=== PATIENT | male | born 1970 | race Caucasian/White ===

== ENCOUNTER 2022-02-25 17:51 | Outpatient (REF) | payer OTHER, MEDICAID, SELFPAY ==
[2022-02-25 16:32] LABS: Abs Immature Grans 0.04 10^3/uL (0.0-0.06); Absolute Basophil Count 0.06 10^3/uL (0.0-0.2); Absolute Eosinophil Count 0.19 10^3/uL (0.0-0.7); Absolute Lymphocyte Count 1.83 10^3/uL (1.2-3.4); Absolute Monocyte Count 0.47 10^3/uL (0.1-0.8); Absolute Neutrophil Count 3.91 10^3/uL (1.2-6.7); Basophils % 0.9; Eosinophils % 2.9; HGB 16.4 g/dL (13.5-17.5); Immature Grans % 0.6; Lymphocytes % 28.2; MCH 29.7 pg (27.0-33.0); MCHC 34.2 % (32.0-36.0); MCV 87 fL (80-95); Monocytes % 7.2; Neutrophils % 60.2; Platelet Count 238 10^3/uL (130-400); RBC 5.53 10^6/uL (4.36-5.78); RDW 12.1 % (11.8-14.1); RDW-SD 38.8 fL
[2022-02-25 16:36] LABS: ESR 11 mm/hr (0-15)
[2022-02-25 16:45] LABS: Hemoglobin A1C 11.4 % (<5.7)
[2022-02-25 16:54] LABS: ALT 47 U/L (16-63); AST 25 U/L (15-37); Albumin 3.8 g/dL (3.4-5.0); Alkaline Phosphatase 128 U/L (46-116); Anion Gap 8.6 mmol/L (3-11); BUN 16 mg/dL (7-18); Bilirubin, Total 0.5 mg/dL (0.2-1.0); C-Reactive Protein 0.39 mg/dL (0.0-0.3); CO2 27.4 mmol/L (21.0-32.0); CREATININE 0.9 mg/dL (0.70-1.30); Calcium 9.4 mg/dL (8.5-10.1); Chloride 100 mmol/L (98-107); Glucose 337 mg/dL (74-106); Potassium 4.5 mmol/L (3.5-5.1); Sodium 136 mmol/L (136-145); TSH (W/Ref FT4) 1.21 uIU/mL (0.36-3.74); Total Protein 7.6 g/dL (6.4-8.2)
[2022-02-25 17:45] LABS: Calculated LDL 139 mg/dL (<100); Cholesterol 231 mg/dL (<200); HDL Cholesterol 43 mg/dL (40-60); Triglyceride 245 mg/dL (<150); Vitamin B12 447 pg/mL (193-986)
[2022-02-28 11:34] LABS: Hepatitis C Ab w Rflx HCV PCR Negative (Negative)
[2022-02-28 11:47] LABS: HIV-1/2 Ag & Ab Screen Negative (Negative)
[2022-02-28 13:25] LABS: PSA, Screening 0.3 ng/mL (<=3.5)
== END 2022-02-25 17:52 | disposition home or self-care (01) ==
LOC: NCHCN 17:51
PROVIDERS: PCP Family Medicine; Visit Provider Family Medicine
DX: Z00.00 Encounter for general adult medical examination without abnormal findings (principal); R63.4 Abnormal weight loss; E11.65 Type 2 diabetes mellitus with hyperglycemia; Z13.220 Encounter for screening for lipoid disorders; Z11.4 Encounter for screening for human immunodeficiency virus [HIV]; Z13.21 Encounter for screening for nutritional disorder; Z12.5 Encounter for screening for malignant neoplasm of prostate; Z11.59 Encounter for screening for other viral diseases
CPT/HCPCS: 80053; 80061; 84153; 85652; 86803; 87389; 82607; 83036; 84443; 85025; 86140

== ENCOUNTER 2022-03-01 12:37 | Outpatient (REF) | payer OTHER, MEDICAID, SELFPAY ==
[2022-03-01 15:49] LABS: COMMENT (LAB VIEW ONLY) 69.83 mg/dL; Microalb ug/mg Crea 9.6 ug/mg Cr
== END 2022-03-01 12:38 | disposition home or self-care (01) ==
LOC: NCHCN 12:37
PROVIDERS: PCP Family Medicine; Visit Provider Family Medicine
DX: E11.65 Type 2 diabetes mellitus with hyperglycemia (principal)
CPT/HCPCS: 82043; 82570

== ENCOUNTER 2022-05-31 22:35 | Outpatient (REF) | payer OTHER, MEDICAID, SELFPAY ==
[2022-05-31 21:38] LABS: ALT 43 U/L (16-63); AST 24 U/L (15-37); Alkaline Phosphatase 98 U/L (46-116); Anion Gap 7.2 mmol/L (3-11); BUN 22 mg/dL (7-18); Bilirubin, Total 0.5 mg/dL (0.2-1.0); CO2 27.8 mmol/L (21.0-32.0); CREATININE 0.9 mg/dL (0.70-1.30); Calcium 9.6 mg/dL (8.5-10.1); Calculated LDL 63 mg/dL (<100); Chloride 106 mmol/L (98-107); Cholesterol 134 mg/dL (<200); Glucose 155 mg/dL (74-106); HDL Cholesterol 54 mg/dL (40-60); Potassium 4.4 mmol/L (3.5-5.1); Sodium 141 mmol/L (136-145); Total Protein 7.6 g/dL (6.4-8.2); Triglyceride 89 mg/dL (<150)
== END 2022-05-31 22:36 | disposition home or self-care (01) ==
LOC: NCHCN 22:35
PROVIDERS: PCP Family Medicine; Visit Provider Nurse Practitioner Family
DX: E78.5 Hyperlipidemia, unspecified (principal); E11.65 Type 2 diabetes mellitus with hyperglycemia
CPT/HCPCS: 80053; 80061

== ENCOUNTER 2022-12-07 18:31 | Outpatient (REF) | payer BC, MEDICAID, SELFPAY ==
[2022-12-07 22:16] LABS: COMMENT (LAB VIEW ONLY) 88.49 mg/dL; Microalb ug/mg Crea 6.8 ug/mg Cr
== END 2022-12-07 18:32 | disposition home or self-care (01) ==
LOC: NCHCN 18:31
PROVIDERS: PCP Family Medicine; Visit Provider Nurse Practitioner Family
DX: E11.65 Type 2 diabetes mellitus with hyperglycemia (principal)
CPT/HCPCS: 82043; 82570

== ENCOUNTER 2023-05-31 16:48 | Outpatient (REF) | payer BC, SELFPAY ==
[2023-05-31 21:23] LABS: Hemoglobin A1C 6.8 % (<5.7)
[2023-05-31 21:30] LABS: ALT 40 U/L (16-63); AST 25 U/L (15-37); Alkaline Phosphatase 96 U/L (46-116); Anion Gap 6.4 mmol/L (3-11); BUN 16 mg/dL (7-18); Bilirubin, Total 0.5 mg/dL (0.2-1.0); CO2 27.6 mmol/L (21.0-32.0); CREATININE 0.9 mg/dL (0.70-1.30); Calcium 9.6 mg/dL (8.5-10.1); Calculated LDL 57 mg/dL (<100); Chloride 105 mmol/L (98-107); Cholesterol 146 mg/dL (<200); Estimated GFR 102.76 (mL/min/1.73m2); Glucose 127 mg/dL (74-106); HDL Cholesterol 68 mg/dL (40-60); Potassium 4.6 mmol/L (3.5-5.1); Sodium 139 mmol/L (136-145); Total Protein 7.3 g/dL (6.4-8.2); Triglyceride 105 mg/dL (<150)
== END 2023-05-31 16:49 | disposition home or self-care (01) ==
LOC: NCHCN 16:48
PROVIDERS: PCP Family Medicine; Visit Provider Nurse Practitioner Family
DX: E11.65 Type 2 diabetes mellitus with hyperglycemia (principal); E78.5 Hyperlipidemia, unspecified; Z00.00 Encounter for general adult medical examination without abnormal findings
CPT/HCPCS: 80053; 80061; 83036

== ENCOUNTER 2023-12-06 18:18 | Outpatient (REF) | payer BC, SELFPAY ==
[2023-12-07 19:51] LABS: COMMENT (LAB VIEW ONLY) 76.03 mg/dL; Microalb ug/mg Crea 6.4 ug/mg Cr
== END 2023-12-06 18:19 | disposition home or self-care (01) ==
LOC: NCHCN 18:18
PROVIDERS: PCP Family Medicine; Visit Provider Nurse Practitioner Family
DX: E11.65 Type 2 diabetes mellitus with hyperglycemia (principal)
CPT/HCPCS: 82043; 82570

== ENCOUNTER 2024-11-18 16:44 | Outpatient (REF) | payer BC, SELFPAY ==
[2024-11-18 21:55] LABS: COMMENT (LAB VIEW ONLY) 97.89 mg/dL; Microalb ug/mg Crea 8.7 ug/mg Cr
== END 2024-11-18 16:45 | disposition home or self-care (01) ==
LOC: NCHCN 16:44
PROVIDERS: PCP Family Medicine; Visit Provider Nurse Practitioner Family
DX: E11.65 Type 2 diabetes mellitus with hyperglycemia (principal)
CPT/HCPCS: 82043; 82570

== ENCOUNTER 2025-02-19 20:00 | Outpatient (REF) | payer BC, SELFPAY ==
[2025-02-19 22:24] LABS: ALT 44 U/L (16-63); AST 25 U/L (15-37); Albumin 3.9 g/dL (3.4-5.0); Alkaline Phosphatase 107 U/L (46-116); Anion Gap 8.0 mmol/L (3-11); BUN 19 mg/dL (7-18); Bilirubin, Total 0.4 mg/dL (0.2-1.0); CO2 27.0 mmol/L (21.0-32.0); Calcium 9.4 mg/dL (8.5-10.1); Calculated LDL 57 mg/dL (<100); Chloride 104 mmol/L (98-107); Cholesterol 131 mg/dL (<200); Estimated GFR 110.18 (mL/min/1.73m2); Glucose 88 mg/dL (74-106); HDL Cholesterol 53 mg/dL (>or=40); Potassium 3.9 mmol/L (3.5-5.1); Sodium 139 mmol/L (136-145); Total Protein 7.6 g/dL (6.4-8.2); Triglyceride 105 mg/dL (<150)
[2025-02-20 18:45] LABS: PSA, Screening 0.4 ng/mL (<=3.5)
== END 2025-02-19 20:01 | disposition home or self-care (01) ==
LOC: NCHCN 20:00
PROVIDERS: PCP Family Medicine; Visit Provider Nurse Practitioner Family
DX: E11.65 Type 2 diabetes mellitus with hyperglycemia (principal); E78.5 Hyperlipidemia, unspecified; Z12.5 Encounter for screening for malignant neoplasm of prostate
CPT/HCPCS: 80053; 80061; 84153